=== PATIENT | male | born 1950 | race Caucasian/White ===

== ENCOUNTER 2024-05-05 11:58 | Inpatient (IN) | payer MEDICARE, OTHER, SELFPAY ==
[2024-05-05] VITALS (12 sets, daily range): BP systolic 106–136; BP diastolic 70–99; BMI 39.4; BMI 38.2
[2024-05-05 08:07] LABS: % Basophils 0.8 % (0-2); % Eosinophils 2.4 % (0-6); % Immature Granulocytes 0.3 % (0-0.5); % Lymphocytes 31.6 % (20.5-51.1); % Monocytes 10.5 % (1.7-9.3); % Neutrophils 54.4 % (42.2-75.2); Absolute Basophils 0.1 10^3/uL (0-0.2); Absolute Eosinophils 0.2 10^3/uL (0-0.7); Absolute Monocytes 0.7 10^3/uL (0.1-0.6); Absolute Neutrophils 3.4 10^3/uL (1.4-6.5); Hematocrit 46.5 % (39.0-52.0); Hemoglobin 16.3 g/dL (13.0-18.0); Mean Corp Hgb Conc. 35.1 g/dL (33.0-37.0); Mean Corpuscular Hgb 29.9 pg (27.0-31.0); Mean Corpuscular Volume 85.3 fL (80.0-94.0); Mean Platelet Volume 10.4 fL (7.4-10.4); Nucleated Red Blood Cells % 0 % (-); Platelet Count 226 10^3/uL (130-400); Red Blood Cell Count 5.45 10^6/uL (4.70-6.10); Red Cell Dist. Width 13.2 % (11.5-14.5); White Blood Cell Count 6.3 10^3/uL (4.8-10.8)
[2024-05-05 08:19] LABS: ALT (SGPT) 20 U/L (0-50); AST (SGOT) 21 U/L (17-59); Albumin 3.9 g/dl (3.5-5.0); Alkaline Phosphatase 60 U/L (38-126); Blood Urea Nitrogen 17 mg/dl (9-20); Calcium 9.1 mg/dl (8.4-10.2); Carbon Dioxide 19 mmol/L (22-30); Chloride 103 mmol/L (98-107); Estimated Creatinine Clearance > 125 ml/min; Glucose 185 mg/dl (70-99); Potassium 3.6 mmol/L (3.5-5.1); Sodium 134 mmol/L (135-145); Total Bilirubin 0.8 mg/dl (0.2-1.3); Total Protein 6.5 g/dl (6.3-8.2); eGFR > 60.00
--- NOTE | 2024-05-05 08:30 | ED.GENMED ---
History of Present Illness
General
Chief Complaint: Heart Rate Problem
Source: patient and ambulance crew
Exam Limitations: none
Time Seen by Provider: 05/05/24 08:05
Nursing documentation reviewed up to this point in time: agreed with
History of Present Illness
History of Present Illness:
73-year-old male presents emergency room due to dizziness, nausea vomiting and heart palpitations that began at 6 AM. He had nausea and vomiting, and was found to be in rapid atrial fibrillation.
Past History
Past History
ED Past Medical History: HTN and Hypercholesterolemia
ED Past Surgical History: Bowel resection and Other (Umbilical hernia repair, incisional hernia repair)
Social History
Tobacco: Non-smoker
Alcohol: None
Drug: None
Personal:
Review of Systems
Review of Systems
Allergies reviewed?: Yes
All Other Systems: Not applicable
Constitutional: Reports no symptoms
EENT: Reports no symptoms
Respiratory: Reports no symptoms
Cardiac: Reports palpitations
ABD/GI: Reports nausea and vomiting
: Reports no symptoms
Musculoskeletal: Reports no symptoms
Skin: Reports no symptoms
Neurological: Reports dizzy
Endocrine: Reports no symptoms
Hematologic/Lymphatic: Reports no symptoms
Psychiatric: Reports no symptoms
Phy Exam
Physical Exam
Physical Exam:
Physical Exam
General: Afebrile, appears uncomfortable
Neck: supple. no meningeal signs. normal posterior pharynx
Heart: s1/s2 tachycardia, no murmur. equal radial
pulses.
HEENT: Pupils equal round reactive to light, EOMI
Lungs: no acute respiratory distress. clear bilaterally
Abdomen: normal bowel sounds. not tender. no CVAT
Neuro: alert and oriented. no focal neurological deficits cranial nerves II through XII intact
Skin: no rash
Psychiatric: well kept. interactive and cooperative
Extremities: no edema. no calf tenderness. negative homans. good distal pulses
Course
Orders/Labs/Results
Orders:
Orders
05/05/24 07:38
EKG [Electrocardiogram (*1)] Urgent
Reason for Study: Palpitations
EKG- Treatment ONCE
05/05/24 07:44
Cardiac Monitoring- Treatment ONCE
Pulse Ox/spot Check [RESP] Urgent
Quantity: 1
Special Instructions: ON ROOM AIR
05/05/24 07:53
Complete Blood Count/With Diff Urgent
Comprehensive Metabolic Panel Urgent
Troponin I Urgent
05/05/24 08:29
CT Head W/o Iv Contrast Urgent
Comment:
Reason For Exam: dizziness, n/v
05/05/24 09:38
Diltiazem 125 mg/125 ml Nss [Cardizem] 125 mg in 125 ml IV NOW
Initial dose in mg/hr, then titrate:: 5
Titrate to keep:: Heart rate 80-100 bpm
Titrate by mg/hr:: 5 mg/hr
Frequency of titrations (minutes):: 15
Maximum dose in mg/hr:: 15
Diltiazem HCl [Cardizem] 5 mg IV NOW STA
05/05/24 11:29
Admit/Transfer Patient As Directed
Co-Sign Provider:
Level of Care: Inpatient admission
Assign to:: IVU
Physician / Group: Oswald
Diagnosis: Afib with RVR
Reason for Hospitalization: Above
Expected length of stay greater than two midnights?: Yes
ELOS- Estimated Length of Stay in days: 2
I certify the patient meets the requirements for IP care: Yes
05/05/24 11:30
PRN Pain Medication Management As Directed
May give lesser potent ordered pain med per pt: Yes
preference::
Protocol:: Medication orders for pain may be administered in a
manner that supports deferring to patient preference
when the pt is:
- Requesting an ordered lesser potent pain medication.
Least to most potent pain medications are defined
as: acetaminophen < NSAID < tramadol < opioids
(morphine, oxycodone, hydromorphone).
- Requesting a lesser dose of the same medication IF
ORDERED.
- Requesting a less intrusive route of administration
if both routes are prescribed by the provider (PO <
IV).
05/05/24 11:32
Code Status As Directed
Resuscitation Status: Full Code
Abnormal Lab Results
05/05/24
07:53
Absolute Monos (auto) 0.7 H 10^3/uL
(0.1-0.6)
Monocytes % 10.5 H %
(1.7-9.3)
Sodium 134 L mmol/L
(135-145)
Carbon Dioxide 19 L mmol/L
(22-30)
Creatinine 0.6 L mg/dL
(0.7-1.3)
Glucose 185 H mg/dl
(70-99)
05/05/24 07:53
05/05/24 07:53
Vital Signs
Initial and Last Documented VS:
Initial Vital Signs
Temp Pulse Resp BP Pulse Ox
98.2 F 122 16 136/85 98
05/05/24 07:34 05/05/24 07:34 05/05/24 07:34 05/05/24 07:34 05/05/24 07:34
Last Documented Vital Signs
Temp Pulse Resp BP Pulse Ox
98.2 F 101 21 115/90 94
05/05/24 07:34 05/05/24 13:45 05/05/24 13:45 05/05/24 11:20 05/05/24 13:45
MDM/Problems Addressed
Differential Diagnosis Includes:
CVA, rapid A-fib
MDM/Problems Addressed:
73-year-old male with dizziness, rapid A-fib, double vision. IV Cardizem drip. Admit to hospitalist. CT head no acute finding
Chronic conditions affecting care: Arrhythmia
Acute Exacerbation and/or Progression of Chronic Illness: Arrhythmia
*Radiology
Radiology exam reviewed: radiology read reviewed (CT head no acute findings)
*Pulse Oximetry
Patient hypoxic: no
*EKG
Interpreted by ED Provider?: Yes
EKG Intrepretation Date: 05/05/24
EKG Intrepretation Time: 07:40
Interpretation: abnormal
Comparison EKG: changes noted
Heart Rate: 130
Rate: tachycardiac
Rhythm: a-fib
Boaz: normal axis
Interval: normal interval
QRS Pattern: normal QRS
Ischemia: non-specific ST changes
*Order Selector Interpretation
Rate: tachycardiac
Interpretation: abnormal
Heart Rate: 120
Rhythm: a-fib
*Critical Care Note
Total Time (30-74mins, 75-104mins- exclusive of procedures): 30
comment:
Critical care statement: A total of 30 minutes of critical care time was provided for this patient. This includes management of unstable vital signs, evaluation of the patient at bedside, reviewing the patient's pertinent medical records, discussion
with consultants, review of old EKGs and review of pertinent medical records. This time with separate from time utilized to perform the aforementioned documented procedures
ED Attending Note
-
Portions of this chart may have been created with voice recognition software.� Occasional wrong word or��sound alike� substitutions may have occurred due to the inherent limitations of voice recognition software.
Discharge Plan
Departure
Patient Disposition: Admit
Date of Disposition: 05/05/24
Time of Disposition: 10:33
Admit to: IVU
Presentation/result/management discussed w/ accepting MD/DO: Hospitalist
Patient with high blood pressure during this ER visit?: Yes
Condition: Fair
Discharge Problem:
Rapid atrial fibrillation, Dizziness, Double vision
Interventions
Interventions:
*Risk Screen - Suicide Last Done: 05/05/24 07:34
*General Assessment Last Done: 05/05/24 07:34
*Neglect/Abuse Screening Last Done: 05/05/24 07:34
ED- Fall Risk Assessment Last Done: 05/05/24 07:42
*ED COVID-19 Vaccine History Last Done: 05/05/24 07:42
ED- Cardiac Assessment Last Done: 05/05/24 07:42
ED- Pulmonary Assessment Last Done: 05/05/24 07:42
[2024-05-05 08:31] LABS: Troponin I < 0.012 ng/ml
[2024-05-05] MEDS: CARDIZEM 5 MG IV (09:55)
[2024-05-05] MEDS: CARDIZEM 125 IV (09:55)
--- NOTE | 2024-05-05 11:36 | HPS.HSE ---
Family Physician
-
Family Physician: Taran Rosario
Chief Complaint
-
Palpitations, dizziness, nausea and vomiting, transient diplopia
History of Present Illness
Patient is a 73 years old male with a history of paroxysmal A-fib with prior ablation cardioversions on anticoagulation with Eliquis who presents to the emergency room shortly after onset of palpitations, dizziness, nausea with 1 episode of emesis
and transient diplopia. Patient denies any chest pain, passing out. While in emergency room patient was found to be in rapid atrial fibrillation with rate up to 130�140s. He was hemodynamically stable.
Was initiated on Cardizem drip with now rate being controlled at mid 90s. Patient has been compliant with preadmission medication regimen including Cardizem as well as with Eliquis.
At the time my examination patient denies any chest pain, palpitations. His dizziness, nausea, and double vision all resolved.
Medical History
Past Medical History
Past Medical History: Reports Arrhythmia (Paroxysmal atrial fibrillation), HTN, Hypercholesterolemia, NIDDM and Other (Lichen planus)
Past Surgical History: Reports Other (Orthopedic. Status post ablation)
Social History
Tobacco: Non-smoker
Drug: None
Personal:
Living: With Family
Employment: Retired
Family History
Family History: Not pertinent
Allergies / Home Medications
Allergies reflects when Allergies were last updated in [facility].
Home Medications with original date entered in [facility]
Allergy/Medication List:
Allergies
Allergy/AdvReac Type Severity Reaction Status Date / Time
codeine AdvReac Mild Nausea Verified 05/05/24 07:33
oxycodone [From Percocet] AdvReac Nausea Verified 05/05/24 07:33
Home Medications
cholecalciferol (vitamin D3) 50 mcg (2,000 unit) tablet 2,000 units PO DAILY 04/01/18
cyanocobalamin (vitamin B-12) 1,000 mcg tablet 1,000 mcg PO DAILY 04/01/18
hydrochlorothiazide 25 mg tablet 25 mg PO DAILY 04/01/18
potassium chloride 10 mEq capsule,extended release 20 meq PO DAILY 04/01/18
guaifenesin 1,200 mg tablet, extended release 12 hr (Mucinex) 1,200 mg PO BID 01/24/19
cetirizine 10 mg tablet 10 mg PO Daily 05/01/21
apixaban 5 mg tablet (Eliquis) 5 mg PO BID ##0 05/12/21
metformin 1,000 mg tablet 1,000 mg PO QPM ##0 05/12/21
pravastatin 40 mg tablet 40 mg PO QPM 05/01/22
diltiazem HCl 120 mg tablet 120 mg PO .SEE BELOW 05/05/24
triamcinolone acetonide 0.1 % topical ointment 1 applic topical BID BODY RASH 05/05/24
Review of Systems
-
A 12 point ROS was completed and negative except as noted: Yes
Respiratory: Reports See HPI
Cardiac: Reports See HPI
Abdomen/GI: Reports See HPI
Neurological: Reports See HPI
Physical Exam
Vital Signs
Vital Signs
Temp Pulse Resp BP Pulse Ox
98.2 F 117 20 136/93 94
05/05/24 07:34 05/05/24 09:08 05/05/24 09:08 05/05/24 08:20 05/05/24 08:30
Physical Exam
General: Well Developed, Well Nourished and No Apparent Distress
HEENT: NormoCephalic, Moist mucous membranes and Atraumatic
Respiratory: Clear
Cardiac: S1/S2 and Regular Rhythm; No Murmur or Rub
GI: Soft, Non Tender, Non Distended and Normal Bowel Sounds; No Organomegaly
Rectal: Deferred by Provider
Musculoskeletal: No Clubbing, No Cyanosis and No Edema
Skin: No Rash
Neuro: Nonfocal/grossly intact
Laboratory Results
-
05/05/24 07:53
05/05/24 07:53
Laboratory Results
Total Bilirubin 0.8 mg/dl (0.2-1.3) 05/05/24 07:53
AST 21 U/L (17-59) 05/05/24 07:53
ALT 20 U/L (0-50) 05/05/24 07:53
Alkaline Phosphatase 60 U/L (38-126) 05/05/24 07:53
Troponin I < 0.012 ng/ml 05/05/24 07:53
Impression/Plan
-
IMPRESSION:
Presentation with palpitations, nausea and dry heaves, transit dizziness with diplopia.
Atrial fibrillation with rapid ventricular response.
Conditions prior to admission:
Paroxysmal atrial fibrillation with prior history of ablation and multiple cardioversions.
Essential hypertension.
Type 2 diabetes [id number].
Dyslipidemia
Obesity with BMI of 39
Obstructive sleep apnea.
Lichen planus
Chronic shortness of breath on exertion
PLAN:
A-fib with RVR.
Improved with initiation of IV Cardizem
Monitor on telemetry.
Considered to transition to Cardizem drip in the higher dose.
Continue anticoagulation with Eliquis.
Cardiology consultation
Presentation with nausea, emesis, dizziness and diplopia shortly resolved with improved rate.
No focal neurologic findings on exam.
CT scan of the head with no acute abnormalities.
Patient states he had been compliant with Eliquis.
Monitor closely, if persistent symptoms consider to repeat CT scan or pursue MRI and neurologic evaluation
Essential hypertension
Patient reports increased BP readings as outpatient.
Currently normotensive while on Cardizem drip.
MADDISON 05/07 with preserved LVEF 60 to 65% no significant valvular abnormalities. Large patent foramen ovale present with the [id number] shunt
Consider updating echocardiogram.
Monitor BP trend while on Cardizem
Continue HCTZ.
Type 2 diabetes [id number].
Update hemoglobin A1c
Carbohydrate diet
Continue metformin.
Dyslipidemia on statin
Obstructive sleep apnea patient may use his own CPAP.
Lichen planus currently on topical steroids.
DVT prophylaxis�Eliquis.
Full code
--- NOTE | 2024-05-05 12:47 | CON.CAR ---
Addendum entered and electronically signed by Daniel Ramírez MD 05/05/24 17:39:
I saw and examined the patient.
The Food Technologist's note was reviewed and I agree with the note.
Comment:
GEN: No distress, awake, Ox3
HEENT: supple, anicteric, mmm
LUNGS: CTA, no wheezes/rales
CV: Irreg, S1/S2, 1/6 syst LSB, no gallop
ABD: soft, BS+, NT/ND
EXT: No edema
NEURO: Gross non-focal
SKIN: No rash
Plan:
73-year-old male with past medical history of PVI in 2020, obesity, diabetes, hypertension hyperlipidemia, lichen planus presents with dizziness and grogginess. He was found to be in atrial fibrillation with elevated heart rates. He has not
tolerated amiodarone or sotalol in the past. He does take hydrochlorothiazide and last dose was morning.
Continue IV Cardizem for rate control. There is an interaction between hydrochlorothiazide and Tikosyn, however on Wednesday morning we will initiate Tikosyn 500 mcg p.o. every 12. And follow QT interval.
Plan will be for cardioversion on Wednesday. Continue Eliquis.
Check echocardiogram. Will need to follow blood pressure off hydrochlorothiazide.
Original Note:
Consultation
Consultation Request
Date/Time Consultation Performed: 05/05/24
Requesting Provider: Dr. Akers
Performing Provider: Shania Reyna PA-C for Dr. Ramírez
Reason for Consultation: afib
Medical History
-
Chief Complaint: N/V, dizziness
History of Present Illness:
Patient is a 73-year-old male with past medical history of paroxysmal atrial fibrillation status post PVI 04/2021, diabetes, hypertension, hyperlipidemia, obesity, ADELSO, history of colon resection 1996 secondary to diverticulitis, former smoker,
recent diagnosis lichen planus, who was in his normal state of health upon going to bed around 9 PM last night. He reports he was up several times to go to the bathroom and was up at 5 AM with his dog. He went back to sleep, however when he woke
up he felt 'groggy' and as though 'my mind could not keep up with my head' when he moved his head. He reports he waited for it to improve, however did not. Also had nausea and vomiting. He could not sit or stand up and then started to become
sweaty. 911 was then called. On arrival to the ER was noted to be in atrial fibrillation with elevated heart rates. He reports he has historically been asymptomatic with his A-fib. He had previously been on amiodarone however this was stopped as
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 He reports compliance with Eliquis. He states after his ablation his heart rates were in the 60s in sinus rhythm, however states they have not been that low in quite some time, noting more
recently heart rates in the 90s to 100s. He reports over the last week his blood pressure has been elevated and a new medication was added to his regimen. Has not noted headaches. Does report worsening shortness of breath. He is on HCTZ 25mg
daily.
PMH:
Paroxysmal atrial fibrillation
Status post PVI 04/2021
Chronic anticoagulation with Eliquis
Diabetes
Hypertension
Hyperlipidemia
Obesity
ADELSO
History of colon resection 1996 secondary to diverticulitis
Former smoker
Recent diagnosis lichen planus
Past Medical History
Past Medical History: Other (in HPI)
Social History
Tobacco: Former Smoker
Personal:
Living: With Family
Family History
Family History: Reviewed & Not Pertinent
Allergies / Home Medications
Allergy/AdvReac Type Severity Reaction Status Date / Time
codeine AdvReac Mild Nausea Verified 05/05/24 07:33
oxycodone [From Percocet] AdvReac Nausea Verified 05/05/24 07:33
�Medication �Instructions �Recorded �Confirmed �Type
cholecalciferol (vitamin D3) 50 2,000 units PO DAILY 04/01/18 05/05/24 History
mcg (2,000 unit) tablet
cyanocobalamin (vitamin B-12) 1,000 mcg PO DAILY 04/01/18 05/05/24 History
1,000 mcg tablet
hydrochlorothiazide 25 mg tablet 25 mg PO DAILY 04/01/18 05/05/24 History
potassium chloride 10 mEq 20 meq PO DAILY 04/01/18 05/05/24 History
capsule,extended release
guaifenesin 1,200 mg tablet, 1,200 mg PO BID 01/24/19 05/05/24 History
extended release 12 hr (Mucinex)
cetirizine 10 mg tablet 10 mg PO Daily 05/01/21 05/05/24 History
apixaban 5 mg tablet (Eliquis) 5 mg PO BID ##0 05/12/21 05/05/24 Rx
metformin 1,000 mg tablet 1,000 mg PO QPM ##0 05/12/21 05/05/24 Rx
pravastatin 40 mg tablet 40 mg PO QPM 05/01/22 05/05/24 History
diltiazem HCl 120 mg tablet 120 mg PO .SEE BELOW 05/05/24 05/05/24 History
triamcinolone acetonide 0.1 % 1 applic topical BID BODY RASH 05/05/24 05/05/24 History
topical ointment
Review of Systems
-
History Source: Patient
All other systems: Negative unless noted
Physical Exam
Vital Signs
Temp Pulse Resp BP Pulse Ox
98.2 F 117 20 136/93 94
05/05/24 07:34 05/05/24 09:08 05/05/24 09:08 05/05/24 08:20 05/05/24 08:30
Lab Results
05/05/24 07:53
05/05/24 07:53
Troponin I < 0.012 ng/ml 05/05/24 07:53
Physical Exam
General: No Apparent Distress, Comfortable and Other (obese)
HEENT: Normocephalic, Anicteric and Moist Mucous Membranes
Respiratory: Clear and Non Labored Respirations
Cardiac: S1/S2 and Irregular Rhythm
GI: Soft, Non Tender, Non Distended and Normal Bowel Sounds
Musculoskeletal: No Clubbing, No Cyanosis and No Edema
Skin: Warm and Dry
Neuro: AO x 3
Impression / Plan
-
Primary Travel Assistant: Dr. Barnett
Assessment:
Presentations with dizziness, N/V, concern for vertigo
Paroxysmal atrial fibrillation with RVR
Status post PVI 04/2021
Chronic anticoagulation with Eliquis
Diabetes
Hypertension
Hyperlipidemia
Obesity
ADELSO
mild pulm fibrosis
History of colon resection 1996 secondary to diverticulitis
Former smoker
Recent diagnosis lichen planus
ECHO 08/13/21: EF 64%, moderate concentric LVH, mild MR, trace TR
Plan:
-Patient presented with dizziness/grogginess as well as nausea and vomiting, fortunately now resolved. head CT negative for acute abnormality. work up per primary service
-trop negative
-On arrival to ER was noted to be in A-fib with RVR and started on IV Cardizem, continue for now. On p.o. Cardizem 120 mg daily as an outpatient
-He reports compliance with Eliquis, no missed doses
-He had previously been on amiodarone however this was stopped due to concern for possible side effects with long-term use. Office notes discussed consideration for Tikosyn versus repeat PVI if he were to recur with A-fib. Discussed Tikosyn with
patient and he is agreeable, however he is on HCTZ as an outpatient which will need to be stopped. QTc stable by EKG and Cr normal. washout period likely ~ 72 hours. if patient unwilling to stay for washout and then loading, would consider rate
control with possible CV Wednesday and to bring back for tikosyn sometime May or June. not candidate for sotalol due to LVH.
-due to complaints of SOB, check proBNP and CXR. also has mild IPF, but states he was recently seen by pulmonary and SOB was not felt to be lung related
-follow BPs off HCTZ. may need improved BP control
-check TSH
-echo ordered by me. last from 2021 as above
Data Reviewed
-
EKG: Tracing Personally Visualized and interpreted
Medical Tests (Nuc Med, Echo etc): Report Reviewed by me
Labs: Labs Reviewed by me
Old Records: Reviewed
--- NOTE | 2024-05-05 16:02 | CM ---
CM following for DC planning needs.
Prior to admission, patient was residing w/ spouse in a private home.
Functionally, patient is indep. at baseline w/ ADLs, mobility.
Antic. DC to home without needs once stable.
Will remain avail.
[2024-05-05 16:05] LABS: Glucose - Point of Care 121 mg/dl (70-99)
[2024-05-05 16:07] LABS: NT-proBNP 548 pg/ml
[2024-05-05] MEDS: GLUCOPHAGE 1000 MG PO (16:34)
--- NOTE | 2024-05-05 16:59 | RESPNOTE ---
spoke with patient regarding bipap/cpap order. patient states he has never been able to tolerate the PAP unit and does not wear. TT to Dr.Vinnikov Juan trejo to d/c order.
[2024-05-05] MEDS: PRAVACHOL 40 MG PO (17:16)
--- NOTE | 2024-05-05 18:00 | PTCARENOTE ---
Pt received from the ED and admitted to IVU. IV cardizem infusing as ordered. Pt denies any pain, sob or lightheadedness. Remains in afib in the 80's to 90's. OOB ad kathia, gait steady.
[2024-05-05] MEDS: ELIQUIS 5 MG PO (20:31)
[2024-05-05] MEDS: MUCINEX 1200 MG PO (20:31)
[2024-05-05] MEDS: TRIAMCINOLONE ACETONIDE 0.1% OINTMENT 1 APPLIC TOPICAL (20:31)
[2024-05-05 22:19] LABS: Glucose - Point of Care 100 mg/dl (70-99)
--- NOTE | 2024-05-05 23:59 | PTCARENOTE ---
Diltiazem gtt infusing at 5mg/min at this time per order. Atrial fibrillation on monitoring engineer. Patient denies pain, palpitations, lightheadedness, nausea, and/or vomiting. Call osei within reach. Plan of care discussed with patient. Care
ongoing.
[2024-05-06 03:23] VITALS: BP 127/97
[2024-05-06] MEDS: CARDIZEM 125 IV (07:18)
[2024-05-06 07:20] LABS: Glucose - Point of Care 106 mg/dl (70-99)
[2024-05-06 09:00] VITALS: BP 124/93
[2024-05-06 09:00] LABS: Glycohemoglobin (HgbA1c) 6.4 % (4.0-5.6)
[2024-05-06] MEDS: MUCINEX 1200 MG PO ×2 (09:02→20:30)
[2024-05-06] MEDS: VITAMIN D3 (cholecalciferol) 50 MCG PO (09:03)
[2024-05-06] MEDS: ELIQUIS 5 MG PO ×2 (09:03→20:30)
[2024-05-06] MEDS: KCL 20 MEQ PO (09:03)
[2024-05-06] MEDS: VITAMIN B-12 1000 MCG PO (09:03)
[2024-05-06] MEDS: TRIAMCINOLONE ACETONIDE 0.1% OINTMENT 1 APPLIC TOPICAL ×2 (09:04→20:31)
[2024-05-06] MEDS: ZYRTEC 10 MG PO (09:05)
--- NOTE | 2024-05-06 09:31 | W.PN.CARDCBS ---
Today's Communication / Plan
-
Overall feels better. Will continue IV Cardizem for now and then can switch to Tikosyn in a.m. for Tikosyn load
Continue Eliquis.
Plan will be for cardioversion Wednesday
Impression / Plan
-
Primary Development Architect: Dr. Barnett
Assessment:
Presentations with dizziness, N/V, concern for vertigo
Paroxysmal atrial fibrillation with RVR
Status post PVI 04/2021
Chronic anticoagulation with Eliquis
Diabetes
Hypertension
Hyperlipidemia
Obesity
ADELSO
mild pulm fibrosis
History of colon resection 1996 secondary to diverticulitis
Former smoker
Recent diagnosis lichen planus
ECHO 08/13/21: EF 64%, moderate concentric LVH, mild MR, trace TR
Echo May 05, 2024, EF 55 6%, mild MR, mild TR, aortic root 3.9 cm
Plan:
-Patient presented with dizziness/grogginess as well as nausea and vomiting, fortunately now resolved. head CT negative for acute abnormality. work up per primary service
-trop negative
-Continue IV Cardizem for another 24 hours. Tomorrow we will start Tikosyn 500 mcg every 12. He will be off hydrochlorothiazide for 72 hours at that point.
-He reports compliance with Eliquis, no missed doses
-LVEF preserved by echo. Plan will be for cardioversion on Wednesday.
Progress Note - Development Architect
Subjective
Date of Service: May 06, 2024
Overall feels better. No further dizziness. Remains in A-fib with controlled rates.
Objective
Labs:
05/05/24 07:53
05/05/24 07:53
Labs
Hgb 16.3 g/dL (13.0-18.0) 05/05/24 07:53
Hct 46.5 % (39.0-52.0) 05/05/24 07:53
Plt Count 226 10^3/uL (130-400) 05/05/24 07:53
Sodium 134 mmol/L (135-145) L 05/05/24 07:53
Potassium 3.6 mmol/L (3.5-5.1) 05/05/24 07:53
BUN 17 mg/dl (9-20) 05/05/24 07:53
Creatinine 0.6 mg/dL (0.7-1.3) L 05/05/24 07:53
Glucose 185 mg/dl (70-99) H 05/05/24 07:53
Troponins
05/05/24
07:53
Troponin I < 0.012
Vital Signs and I&O:
Vital Signs
Temp Pulse Resp BP Pulse Ox
98.2 F 81 14 127/97 97
05/06/24 03:20 05/06/24 06:00 05/06/24 03:20 05/06/24 03:23 05/06/24 03:20
Vital Signs
Temp Pulse Resp BP Pulse Ox
98.2 F 81 14 127/97 97
05/06/24 03:20 05/06/24 06:00 05/06/24 03:20 05/06/24 03:23 05/06/24 03:20
Intake & Output
05/04/24 05/05/24 05/06/24 05/07/24
06:59 06:59 06:59 06:59
Intake Total 60 / 60
Balance 60 / 60
Physical Exam
Physical Exam
GEN: No distress, awake, Ox3
HEENT: supple, anicteric, mmm
LUNGS: CTA, no wheezes/rales
CV: irreg, S1/S2, 1/6 syst LSB, no gallop
ABD: soft, BS+, NT/ND
EXT: No edema
NEURO: Gross non-focal
SKIN: No rash
[2024-05-06 11:59] VITALS: BP 112/84
[2024-05-06 11:59] LABS: Glucose - Point of Care 96 mg/dl (70-99)
--- NOTE | 2024-05-06 14:24 | W.PN.HOSP.TC ---
Today's Communication/Plan
-
Monitor vital signs
see plan
Plan for Tikosyn loading starting tomorrow by cardiology
Cardioversion next week
Continue with Cardizem drip
Assessment / Plan
Assessment / Plan
General: Well Developed, Well Nourished and No Apparent Distress
HEENT: NormoCephalic, Moist mucous membranes and Atraumatic
Respiratory: Clear
Cardiac: S1/S2 and Regular Rhythm; No Murmur or Rub
GI: Soft, Non Tender, Non Distended and Normal Bowel Sounds
Musculoskeletal: No Clubbing, No Cyanosis and No Edema
Skin: No Rash
Neuro: Nonfocal/grossly intact
IMPRESSION:
Presentation with palpitations, nausea and dry heaves, transit dizziness with diplopia.
Atrial fibrillation with rapid ventricular response.
Conditions prior to admission:
Paroxysmal atrial fibrillation with prior history of ablation and multiple cardioversions.
Essential hypertension.
Type 2 diabetes [id number].
Dyslipidemia
Obesity with BMI of 39
Obstructive sleep apnea.
Lichen planus
Chronic shortness of breath on exertion
PLAN:
A-fib with RVR. History of paroxysmal A-fib status post cardioversion and ablation in past
Improved with initiation of IV Cardizem
Monitor on telemetry.
Plan for Tikosyn starting 05/07 once patient is off HCTZ
Continue anticoagulation with Eliquis.
Cardiology following. Plan for cardioversion possibly on Wednesday
Presentation with nausea, emesis, dizziness and diplopia shortly resolved with improved rate.
No focal neurologic findings on exam.
CT scan of the head with no acute abnormalities.
Patient states he had been compliant with Eliquis.
Monitor closely, if persistent symptoms consider to repeat CT scan or pursue MRI and neurologic evaluation
Essential hypertension
Patient reports increased BP readings as outpatient.
Currently normotensive while on Cardizem drip.
Echocardiogram EF 55 to 60%
Monitor BP trend while on Cardizem
Type 2 diabetes [id number].
hemoglobin A1c 6.4
Carbohydrate diet
Continue metformin.
Dyslipidemia on statin
Obstructive sleep apnea patient may use his own CPAP.
Lichen planus currently on topical steroids.
DVT prophylaxis�Eliquis.
Full code
I spent a total of 52 minutes with the patient or on the floor. More than 50% of this time involved counseling and coordination of care.
Anticipated Discharge: > 48 hours
Subjective/Interval History
-
Date of Service: May 06, 2024
denies pain
Objective Data
-
Vital Signs:
Vital Signs
Temp Pulse Resp BP Pulse Ox
97.8 F 79 18 124/93 92
05/06/24 11:57 05/06/24 11:00 05/06/24 11:57 05/06/24 09:00 05/06/24 11:57
I&O
05/05/24 05/06/24 05/07/24
06:59 06:59 06:59
Intake Total 60 / 60
Balance 60 / 60
[2024-05-06 15:17] VITALS: BP 116/87
[2024-05-06] MEDS: TYLENOL 650 MG PO (17:06)
[2024-05-06] MEDS: GLUCOPHAGE 1000 MG PO (17:06)
[2024-05-06] MEDS: PRAVACHOL 40 MG PO (17:06)
[2024-05-06 17:11] LABS: Glucose - Point of Care 88 mg/dl (70-99)
--- NOTE | 2024-05-06 17:45 | PTCARENOTE ---
Assumed care of Pt at 1645, A,A+Ox3. He c/o headache. Order obtained from Dr Frost for Tylenol. Pt med with Tylenol 650 mg Po as ordered for
c/o posterior headache.
[2024-05-06 19:29] VITALS: BP 115/84
[2024-05-06 20:30] LABS: Glucose - Point of Care 100 mg/dl (70-99)
[2024-05-06 22:09] VITALS: BP 117/97
--- NOTE | 2024-05-07 03:48 | PTCARENOTE ---
Assumed care of pt at change of shift. Afib on tele with HR 70s-80s. No complaints of CP or SOB. Cardizem gtt currently infusing at 5mg/hr. Ambulating independently in room without difficulty. Plan of care discussed and pt verbalizes
understanding. Can make needs known. Call osei within reach.
[2024-05-07 04:04] VITALS: BP 109/74
[2024-05-07 04:53] LABS: % Basophils 0.7 % (0-2); % Eosinophils 3.2 % (0-6); % Immature Granulocytes 0.4 % (0-0.5); % Lymphocytes 22.6 % (20.5-51.1); % Monocytes 9.5 % (1.7-9.3); % Neutrophils 63.6 % (42.2-75.2); Absolute Basophils 0.1 10^3/uL (0-0.2); Absolute Eosinophils 0.2 10^3/uL (0-0.7); Absolute Lymphocytes 1.6 10^3/uL (1.2-3.4); Absolute Monocytes 0.7 10^3/uL (0.1-0.6); Absolute Neutrophils 4.4 10^3/uL (1.4-6.5); Hematocrit 45.3 % (39.0-52.0); Hemoglobin 15.4 g/dL (13.0-18.0); Mean Corpuscular Volume 88.1 fL (80.0-94.0); Mean Platelet Volume 10.5 fL (7.4-10.4); Nucleated Red Blood Cells % 0 % (-); Platelet Count 209 10^3/uL (130-400); Red Blood Cell Count 5.14 10^6/uL (4.70-6.10); Red Cell Dist. Width 13.5 % (11.5-14.5)
[2024-05-07 05:17] LABS: Blood Urea Nitrogen 15 mg/dl (9-20); Calcium 8.9 mg/dl (8.4-10.2); Carbon Dioxide 24 mmol/L (22-30); Chloride 104 mmol/L (98-107); Estimated Creatinine Clearance > 125 ml/min; Glucose 107 mg/dl (70-99); Potassium 4.2 mmol/L (3.5-5.1); Sodium 136 mmol/L (135-145); eGFR > 60.00
[2024-05-07] MEDS: CARDIZEM 125 IV (06:45)
[2024-05-07 07:10] VITALS: BP 121/95
[2024-05-07 07:13] LABS: Glucose - Point of Care 100 mg/dl (70-99)
[2024-05-07] MEDS: KCL 20 MEQ PO (08:13)
[2024-05-07] MEDS: ELIQUIS 5 MG PO ×2 (08:13→19:40)
[2024-05-07] MEDS: VITAMIN B-12 1000 MCG PO (08:14)
[2024-05-07] MEDS: VITAMIN D3 (cholecalciferol) 50 MCG PO (08:14)
[2024-05-07] MEDS: ZYRTEC 10 MG PO (08:14)
[2024-05-07] MEDS: MUCINEX 1200 MG PO ×2 (08:17→19:40)
[2024-05-07] MEDS: TRIAMCINOLONE ACETONIDE 0.1% OINTMENT 1 APPLIC TOPICAL ×2 (08:18→19:40)
--- NOTE | 2024-05-07 09:28 | W.PN.CARDCBS ---
Today's Communication / Plan
-
start Tikosyn 500 mcg p.o. every 12. Follow QT interval.
Continue Eliquis
Will switch diltiazem to 120 mg p.o. daily
Impression / Plan
-
Primary Cane Weigher: Dr. Barnett
Assessment:
Presentations with dizziness, N/V, concern for vertigo
Paroxysmal atrial fibrillation with RVR
Status post PVI 04/2021
Chronic anticoagulation with Eliquis
Diabetes
Hypertension
Hyperlipidemia
Obesity
ADELSO
mild pulm fibrosis
History of colon resection 1996 secondary to diverticulitis
Former smoker
Recent diagnosis lichen planus
ECHO 08/13/21: EF 64%, moderate concentric LVH, mild MR, trace TR
Echo May 05, 2024, EF 55 6%, mild MR, mild TR, aortic root 3.9 cm
Plan:
-Patient presented with dizziness/grogginess as well as nausea and vomiting, fortunately now resolved. head CT negative for acute abnormality. work up per primary service
-trop negative
-we will start Tikosyn 500 mcg every 12. He will be off hydrochlorothiazide for 72 hours at that point.
-He reports compliance with Eliquis, no missed doses
-Will likely stop IV diltiazem and switch back to p.o. today.
-LVEF preserved by echo. Plan will be for cardioversion on Wednesday.
Progress Note - Cane Weigher
Subjective
Date of Service: May 07, 2024
Overall feels well. Plan is to start Tikosyn today.
Objective
Labs:
05/07/24 04:25
05/07/24 04:25
Labs
Hgb 15.4 g/dL (13.0-18.0) 05/07/24 04:25
Hct 45.3 % (39.0-52.0) 05/07/24 04:25
Plt Count 209 10^3/uL (130-400) 05/07/24 04:25
Sodium 136 mmol/L (135-145) 05/07/24 04:25
Potassium 4.2 mmol/L (3.5-5.1) 05/07/24 04:25
BUN 15 mg/dl (9-20) 05/07/24 04:25
Creatinine 0.6 mg/dL (0.7-1.3) L 05/07/24 04:25
Glucose 107 mg/dl (70-99) H 05/07/24 04:25
Troponins
05/05/24
07:53
Troponin I < 0.012
Vital Signs and I&O:
Vital Signs
Temp Pulse Resp BP Pulse Ox
98.4 F 80 20 109/74 90
05/07/24 07:07 05/07/24 04:04 05/07/24 07:07 05/07/24 04:04 05/07/24 07:07
Vital Signs
Temp Pulse Resp BP Pulse Ox
98.4 F 80 20 109/74 90
05/07/24 07:07 05/07/24 04:04 05/07/24 07:07 05/07/24 04:04 05/07/24 07:07
Intake & Output
05/05/24 05/06/24 05/07/24 05/08/24
06:59 06:59 06:59 06:59
Intake Total 60 / 60
Balance 60 / 60
Physical Exam
Physical Exam
GEN: No distress, awake, Ox3
HEENT: supple, anicteric, mmm
LUNGS: CTA, no wheezes/rales
CV: Irreg, S1/S2, 1/6 syst LSB, no gallop
ABD: soft, BS+, NT/ND
EXT: No edema
NEURO: Gross non-focal
SKIN: No rash
--- NOTE | 2024-05-07 10:03 | W.CARD.TIKOS ---
Initiate Tikosyn
-
I verify that the patient has not taken any verapamil (Isoptin/Calan), ketoconazole (Nizoral), cimetidine (Tagamet), trimethoprim (Trimpex), trimethoprim/sulfamethoxazole (Bactrim), megesterol (Megace), prochlorperazine (Compazine),
hydrochlorothiazide (HCTZ), dolutegravir (Tivicay) or any Class I or Class III anti-arrhythmic within the last three days
AND
I verify that the patient has not taken amiodarone within the last THREE months, or that the patient's amiodarone plasma concentration is <0.3 mcg/mL.
Creatinine 0.6 mg/dL (0.7-1.3) L 05/07/24 04:25
Estimated Creat Clear > 125 ml/min 05/07/24 04:25
Does patient have a Ventricular Conduction Abnormality: No
I have assessed the baseline QTc interval (using QT for heart rate less than 60 bpm) and deemed the patient is appropriate for Dofetilide therapy. I understand that Tikosyn is contraindicated if the QTc is >440msec (500msec in patients with
ventricular conduction abnormalities).
Baseline QTc (in msec): 429
QTc interval is greater than 440msec without conduction abnormality OR greater than 500msec with a conduction abnormality, but acceptable to proceed per Cardiology attending.
[2024-05-07] MEDS: TIKOSYN 500 MCG PO ×2 (10:19→22:01)
[2024-05-07 12:17] VITALS: BP 123/100
[2024-05-07 12:18] LABS: Glucose - Point of Care 99 mg/dl (70-99)
--- NOTE | 2024-05-07 12:45 | W.PN.HOSP.TC ---
Today's Communication/Plan
-
Monitor vital signs
see plan
tikosyn; monitor EKG
continue eliquis
Assessment / Plan
Assessment / Plan
General: Well Developed, Well Nourished and No Apparent Distress
HEENT: NormoCephalic, Moist mucous membranes and Atraumatic
Respiratory: Clear
Cardiac: S1/S2 and Regular Rhythm; No Murmur or Rub
GI: Soft, Non Tender, Non Distended and Normal Bowel Sounds
Musculoskeletal: No Clubbing, No Cyanosis and No Edema
Skin: No Rash
Neuro: Nonfocal/grossly intact
IMPRESSION:
Presentation with palpitations, nausea and dry heaves, transit dizziness with diplopia.
Atrial fibrillation with rapid ventricular response.
Conditions prior to admission:
Paroxysmal atrial fibrillation with prior history of ablation and multiple cardioversions.
Essential hypertension.
Type 2 diabetes [id number].
Dyslipidemia
Obesity with BMI of 39
Obstructive sleep apnea.
Lichen planus
Chronic shortness of breath on exertion
PLAN:
A-fib with RVR. History of paroxysmal A-fib status post cardioversion and ablation in past
Improved with initiation of IV Cardizem
Monitor on telemetry.
Plan for Tikosyn starting 05/07 once patient is off HCTZ. monitor EKG
Continue anticoagulation with Eliquis.
Cardiology following. Plan for cardioversion possibly on Wednesday
Presentation with nausea, emesis, dizziness and diplopia shortly resolved with improved rate.
No focal neurologic findings on exam.
CT scan of the head with no acute abnormalities.
Patient states he had been compliant with Eliquis.
Monitor closely, if persistent symptoms consider to repeat CT scan or pursue MRI and neurologic evaluation
Essential hypertension
Patient reports increased BP readings as outpatient.
Currently normotensive while on Cardizem drip.
Echocardiogram EF 55 to 60%
Monitor BP trend while on Cardizem
Type 2 diabetes [id number].
hemoglobin A1c 6.4
Carbohydrate diet
Continue metformin.
Dyslipidemia on statin
Obstructive sleep apnea patient may use his own CPAP.
Lichen planus currently on topical steroids.
DVT prophylaxis�Eliquis.
Full code
Anticipated Discharge: > 48 hours
Subjective/Interval History
-
Date of Service: May 07, 2024
denies pain
Objective Data
-
Labs:
Laboratory Results
05/07/24
04:25
WBC 7.0
Hgb 15.4
Hct 45.3
Plt Count 209
Sodium 136
Potassium 4.2
Chloride 104
Carbon Dioxide 24
BUN 15
Creatinine 0.6 L
Glucose 107 H
Calcium 8.9
Vital Signs:
Vital Signs
Temp Pulse Resp BP Pulse Ox
97.5 F 76 20 123/100 97
05/07/24 11:41 05/07/24 12:17 05/07/24 11:41 05/07/24 12:17 05/07/24 11:41
I&O
05/06/24 05/07/24 05/08/24
06:59 06:59 06:59
Intake Total 60 / 60
Balance 60 / 60
[2024-05-07 15:42] VITALS: BP 117/79
[2024-05-07 16:58] LABS: Glucose - Point of Care 107 mg/dl (70-99)
[2024-05-07] MEDS: PRAVACHOL 40 MG PO (17:23)
[2024-05-07] MEDS: GLUCOPHAGE 1000 MG PO (17:23)
--- NOTE | 2024-05-07 17:47 | PTCARENOTE ---
Pt showered this evening, mayur well.
[2024-05-07 18:55] VITALS: BP 114/87
--- NOTE | 2024-05-07 20:21 | PTCARENOTE ---
assumed care of patient at the change of shift. AAOx3. denies any cp/palps. states mild dyspnea on exertion. Afib on tele 80s-90s. cardizem gtt infusing per protocol. bp stable. reviewed plan of care with patient and verbalized understanding. call
osei within reach. makes needs known.
[2024-05-07 20:56] LABS: Glucose - Point of Care 113 mg/dl (70-99)
[2024-05-07 22:01] VITALS: BP 121/91
[2024-05-08] VITALS (9 sets, daily range): BP systolic 115–140; BP diastolic 85–99
--- NOTE | 2024-05-08 00:07 | PTCARENOTE ---
QTc post 2nd dose of Tikosyn- 446.
[2024-05-08 04:06] LABS: % Basophils 0.9 % (0-2); % Eosinophils 3.5 % (0-6); % Immature Granulocytes 0.5 % (0-0.5); % Lymphocytes 24.7 % (20.5-51.1); % Monocytes 10.4 % (1.7-9.3); Absolute Basophils 0.1 10^3/uL (0-0.2); Absolute Eosinophils 0.2 10^3/uL (0-0.7); Absolute Lymphocytes 1.6 10^3/uL (1.2-3.4); Absolute Monocytes 0.7 10^3/uL (0.1-0.6); Absolute Neutrophils 3.8 10^3/uL (1.4-6.5); Hematocrit 44.3 % (39.0-52.0); Hemoglobin 15.1 g/dL (13.0-18.0); Mean Corp Hgb Conc. 34.1 g/dL (33.0-37.0); Mean Corpuscular Hgb 29.7 pg (27.0-31.0); Mean Corpuscular Volume 87.2 fL (80.0-94.0); Mean Platelet Volume 10.1 fL (7.4-10.4); Nucleated Red Blood Cells % 0 % (-); Platelet Count 206 10^3/uL (130-400); Red Blood Cell Count 5.08 10^6/uL (4.70-6.10); Red Cell Dist. Width 13.2 % (11.5-14.5); White Blood Cell Count 6.4 10^3/uL (4.8-10.8)
[2024-05-08 04:32] LABS: Blood Urea Nitrogen 17 mg/dl (9-20); Calcium 8.9 mg/dl (8.4-10.2); Carbon Dioxide 25 mmol/L (22-30); Chloride 105 mmol/L (98-107); Estimated Creatinine Clearance > 125 ml/min; Glucose 118 mg/dl (70-99); Sodium 136 mmol/L (135-145); eGFR > 60.00
[2024-05-08 07:15] LABS: Glucose - Point of Care 101 mg/dl (70-99)
[2024-05-08] MEDS: KCL 20 MEQ PO (08:02)
[2024-05-08] MEDS: MUCINEX 1200 MG PO ×2 (08:02→20:38)
[2024-05-08] MEDS: VITAMIN D3 (cholecalciferol) 50 MCG PO (08:02)
[2024-05-08] MEDS: ELIQUIS 5 MG PO ×2 (08:02→20:38)
[2024-05-08] MEDS: VITAMIN B-12 1000 MCG PO (08:02)
[2024-05-08] MEDS: TRIAMCINOLONE ACETONIDE 0.1% OINTMENT 1 APPLIC TOPICAL ×2 (08:03→20:39)
[2024-05-08] MEDS: ZYRTEC 10 MG PO (08:03)
--- NOTE | 2024-05-08 08:33 | PTCARENOTE ---
Received patient this morning ambulating out into the nuñez. Remains in AF, with a controlled rate, IV cardizem infusing at 5mg/hr. Patient is due for his third tikosyn dose at 1000. Offers no complaints, call osei in reach.
--- NOTE | 2024-05-08 09:45 | W.PN.CARDCBS ---
Today's Communication / Plan
-
Continue Tikosyn 500 mcg p.o. every 12. QTc stable at 446 ms.
Continue Eliquis.
Will switch her IV Cardizem back to oral 120 mg daily.
N.p.o. for cardioversion in a.m.
Impression / Plan
-
Primary Landscape Designer: Dr. Barnett
Assessment:
Presentations with dizziness, N/V, concern for vertigo
Paroxysmal atrial fibrillation with RVR
Status post PVI 04/2021
Chronic anticoagulation with Eliquis
Diabetes
Hypertension
Hyperlipidemia
Obesity
ADELSO
mild pulm fibrosis
History of colon resection 1996 secondary to diverticulitis
Former smoker
Recent diagnosis lichen planus
ECHO 08/13/21: EF 64%, moderate concentric LVH, mild MR, trace TR
Echo May 05, 2024, EF 55 6%, mild MR, mild TR, aortic root 3.9 cm
Plan:
-Patient presented with dizziness/grogginess as well as nausea and vomiting, fortunately now resolved. head CT negative for acute abnormality. work up per primary service
-trop negative
-Cont Tikosyn 500 mcg every 12. He has been off hydrochlorothiazide for 72 hours at that point.
-He reports compliance with Eliquis, no missed doses
-Will likely stop IV diltiazem and switch back to p.o. today.
-LVEF preserved by echo. Plan will be for cardioversion on Wednesday.
Progress Note - Landscape Designer
Subjective
Date of Service: May 08, 2024
Denies chest pain or shortness of breath. Remains in A-fib.
Objective
Labs:
05/08/24 03:44
05/08/24 03:44
Labs
Hgb 15.1 g/dL (13.0-18.0) 05/08/24 03:44
Hct 44.3 % (39.0-52.0) 05/08/24 03:44
Plt Count 206 10^3/uL (130-400) 05/08/24 03:44
Sodium 136 mmol/L (135-145) 05/08/24 03:44
Potassium 4.0 mmol/L (3.5-5.1) 05/08/24 03:44
BUN 17 mg/dl (9-20) 05/08/24 03:44
Creatinine 0.6 mg/dL (0.7-1.3) L 05/08/24 03:44
Glucose 118 mg/dl (70-99) H 05/08/24 03:44
Vital Signs and I&O:
Vital Signs
Temp Pulse Resp BP Pulse Ox
97.5 F 77 18 124/94 98
05/08/24 07:30 05/08/24 07:33 05/08/24 07:30 05/08/24 07:33 05/08/24 07:30
Vital Signs
Temp Pulse Resp BP Pulse Ox
97.5 F 77 18 124/94 98
05/08/24 07:30 05/08/24 07:33 05/08/24 07:30 05/08/24 07:33 05/08/24 07:30
Intake & Output
05/06/24 05/07/24 05/08/24 05/09/24
06:59 06:59 06:59 06:59
Intake Total 60 / 60 400 / 400 240 / 240
Balance 60 / 60 400 / 400 240 / 240
Physical Exam
Physical Exam
GEN: No distress, awake, Ox3
HEENT: supple, anicteric, mmm
LUNGS: CTA, no wheezes/rales
CV: Irreg, S1/S2, 1/6 syst LSB, no gallop
ABD: soft, BS+, NT/ND
EXT: No edema
NEURO: Gross non-focal
SKIN: No rash
[2024-05-08] MEDS: CARDIZEM CD 120 MG PO (10:04)
[2024-05-08] MEDS: TIKOSYN 500 MCG PO ×2 (10:04→21:40)
[2024-05-08] MEDS: FLUSH (NSS) 1 FLUSH IV (10:04)
--- NOTE | 2024-05-08 10:08 | CM ---
Reviewed chart. Met with Mr. Lopez to review discharge plans. He states he is feeling well and maybe able to go home soon. He states prior to admission he resides with is spouse in a one story home. He states prior to admission he was
independent with ambulation and adls. He states he has a prescription plan with [employer] and uses [facility] and [facility]. [facility] ([phone][facility] to check on co-pay for Dofetilide 500 mcg bid. His co-pay would be $5.00
for a ninety day supply. Telephone call to [facility], ([phone]) to see if they have Dofetilide 500 mcg in stock. [facility] has it in stock. They are only opened to 6:00 p.m. on Wednesday05/09/14. Will need a three day script to go to
[facility] for a three day supply to go home with him. Medical work-up in progress. The discharge plan is to return home with his spouse when medically stable.
[2024-05-08 12:03] LABS: Glucose - Point of Care 100 mg/dl (70-99)
--- NOTE | 2024-05-08 12:22 | PTCARENOTE ---
TT to Celeste WILKINS re: QTc 492.
--- NOTE | 2024-05-08 14:48 | W.PN.HOSP.TC ---
Today's Communication/Plan
-
Transition to oral Cardizem.
Continue Tikosyn per
For cardioversion in a.m.
Assessment / Plan
Assessment / Plan
IMPRESSION:
Presentation with palpitations, nausea and dry heaves, transit dizziness with diplopia.
Atrial fibrillation with rapid ventricular response.
Conditions prior to admission:
Paroxysmal atrial fibrillation with prior history of ablation and multiple cardioversions.
Essential hypertension.
Type 2 diabetes [id number].
Dyslipidemia
Obesity with BMI of 39
Obstructive sleep apnea.
Lichen planus
Chronic shortness of breath on exertion
PLAN:
A-fib with RVR. History of paroxysmal A-fib status post cardioversion and ablation in past
Improved with initiation of IV Cardizem
Monitor on telemetry.
Tikosyn initiated on 05/07 once patient is off HCTZ. monitor EKG
Continue anticoagulation with Eliquis.
Transition off IV Cardizem to oral
Continue Tikosyn
Plan for cardioversion
Presentation with nausea, emesis, dizziness and diplopia shortly resolved with improved rate.
No focal neurologic findings on exam.
CT scan of the head with no acute abnormalities.
Patient states he had been compliant with Eliquis.
Monitor closely, if persistent symptoms consider to repeat CT scan or pursue MRI and neurologic evaluation
Essential hypertension
Patient reports increased BP readings as outpatient.
Currently normotensive while on Cardizem drip.
Echocardiogram EF 55 to 60%
Monitor BP trend while on Cardizem
Type 2 diabetes [id number]-drkhkhn-ulcjzhnop.
hemoglobin A1c 6.4
Carbohydrate diet
Continue metformin.
Dyslipidemia on statin
Obstructive sleep apnea patient may use his own CPAP.
Lichen planus currently on topical steroids.
DVT prophylaxis�Eliquis.
Full code
Anticipated Discharge: 24 - 48 hours
Subjective/Interval History
-
Date of Service: May 08, 2024
Objective Data
-
Labs:
Laboratory Results
05/08/24
03:44
WBC 6.4
Hgb 15.1
Hct 44.3
Plt Count 206
Sodium 136
Potassium 4.0
Chloride 105
Carbon Dioxide 25
BUN 17
Creatinine 0.6 L
Glucose 118 H
Calcium 8.9
Vital Signs:
Vital Signs
Temp Pulse Resp BP Pulse Ox
97.5 F 74 16 115/85 94
05/08/24 11:27 05/08/24 12:00 05/08/24 11:27 05/08/24 11:27 05/08/24 11:27
I&O
05/07/24 05/08/24 05/09/24
06:59 06:59 06:59
Intake Total 400 / 400 240 / 240
Balance 400 / 400 240 / 240
Physical Exam
-
General: Well Developed and No Apparent Distress
HEENT: Normocephalic, Atraumatic and Moist Mucous Membranes
Respiratory: Clear to Auscultation
Cardiac: Regular Rhythm and S1/S2; Negative Murmur, Rub or Gallop
GI: Soft, Nontender, Nondistended and Normal Bowel Sounds; Negative Organomegaly
Rectal: Deferred by Provider
Musculoskeletal: No Clubbing, No Cyanosis and No Edema
Skin: Negative Rash
Neuro: Nonfocal/Grossly Intact
[2024-05-08] MEDS: GLUCOPHAGE 1000 MG PO (17:25)
[2024-05-08] MEDS: PRAVACHOL 40 MG PO (17:25)
[2024-05-08 17:27] LABS: Glucose - Point of Care 89 mg/dl (70-99)
[2024-05-08 21:11] LABS: Glucose - Point of Care 119 mg/dl (70-99)
--- NOTE | 2024-05-08 23:47 | PTCARENOTE ---
assumed care of patient at the change of shift. AAOx3. independent in the room. Afib on tele 70s-90s. bp stable. patient states mild dyspnea on exertion. 96% on RA. reviewed plan of care. NPO at midnight. call osei within reach. makes needs known.
QTc post 4th dose of Tikosyn- 492.
[2024-05-09 04:33] VITALS: BP 126/93
[2024-05-09 08:39] VITALS: BP 105/89
[2024-05-09] MEDS: TIKOSYN 500 MCG PO (09:20)
[2024-05-09] MEDS: ELIQUIS 5 MG PO (09:21)
[2024-05-09] MEDS: CARDIZEM CD 120 MG PO (09:21)
[2024-05-09 09:25] LABS: Glucose - Point of Care 101 mg/dl (70-99)
--- NOTE | 2024-05-09 09:48 | PTCARENOTE ---
Received patient this morning resting in bed, NPO for CV. Remains in AF, labs drawn as ordered- report given to Lucrecia and patient taken for his procedure.
[2024-05-09 10:27] LABS: Blood Urea Nitrogen 13 mg/dl (9-20); Carbon Dioxide 24 mmol/L (22-30); Chloride 104 mmol/L (98-107); Estimated Creatinine Clearance > 125 ml/min; Glucose 110 mg/dl (70-99); Magnesium 2.2 mg/dl (1.6-2.3); Sodium 136 mmol/L (135-145); eGFR > 60.00
[2024-05-09 10:45] LABS: Potassium 4.1 mmol/L (3.5-5.1)
[2024-05-09 10:57] VITALS: BP 124/98
--- NOTE | 2024-05-09 11:08 | W.PN.CARDCBS ---
Today's Communication / Plan
-
Continue dofetilide 500 mcg twice daily, oral diltiazem, Eliquis 5 mg twice daily
Repeat BMP, mag; if renal function, electrolytes are stable okay for DC from CV standpoint
Follow-up to be arranged with cardiology as outpatient
Impression / Plan
-
Primary Operations And Maintenance Technician: Dr. Barnett
.
Assessment:
Presentations with dizziness, N/V, concern for vertigo
Paroxysmal atrial fibrillation with RVR
[id number]: 2 (age, hypertension). Eliquis 5 mg twice daily
Status post PVI 04/2021
Chronic anticoagulation with Eliquis
Diabetes
Hypertension
Hyperlipidemia
Obesity
ADELSO
mild pulm fibrosis
History of colon resection 1996 secondary to diverticulitis
Former smoker
Recent diagnosis lichen planus
ECHO 08/13/21: EF 64%, moderate concentric LVH, mild MR, trace TR
Echo May 05, 2024, EF 55 6%, mild MR, mild TR, aortic root 3.9 cm
Plan:
-Patient presented with dizziness/grogginess as well as nausea and vomiting, fortunately now resolved. head CT negative for acute abnormality. work up per primary service
-trop negative
-Cont Tikosyn 500 mcg every 12. He has been off hydrochlorothiazide for 72 hours at that point. Cannot resume hydrochlorothiazide on discharge while on dofetilide.
-He reports compliance with Eliquis, no missed doses
-Continue p.o. diltiazem
-LVEF preserved by echo.
-Status post DCCV 05/05/2024, sinus rhythm; QT/QTc 438/455 ms stable (prior on 05/08/2024 reported as 396/492 ms)
� Repeat BMP/mag this morning if kidney function and electrolytes stable, safe for DC from CV standpoint
�Discussed with patient importance of discussing with his other physicians about QT prolonging medications now that he is taking dofetilide. Patient verbalized understanding
Progress Note - Operations And Maintenance Technician
Subjective
Date of Service: May 09, 2024
Patient seen and examined. No acute events overnight. Patient underwent successful DCCV. Patient denies chest pain, shortness of breath, palpitations, weakness.
Objective
Labs:
05/08/24 03:44
05/09/24 09:27
Labs
Hgb 15.1 g/dL (13.0-18.0) 05/08/24 03:44
Hct 44.3 % (39.0-52.0) 05/08/24 03:44
Plt Count 206 10^3/uL (130-400) 05/08/24 03:44
Sodium 136 mmol/L (135-145) 05/09/24 09:27
Potassium 4.1 mmol/L (3.5-5.1) 05/09/24 09:27
BUN 13 mg/dl (9-20) 05/09/24 09:27
Creatinine 0.6 mg/dL (0.7-1.3) L 05/09/24 09:27
Glucose 110 mg/dl (70-99) H 05/09/24 09:27
Vital Signs and I&O:
Vital Signs
Temp Pulse Resp BP Pulse Ox
97.9 F 101 18 105/89 95
05/09/24 08:40 05/09/24 08:39 05/09/24 08:40 05/09/24 08:39 05/09/24 08:40
Vital Signs
Temp Pulse Resp BP Pulse Ox
97.9 F 101 18 105/89 95
05/09/24 08:40 05/09/24 08:39 05/09/24 08:40 05/09/24 08:39 05/09/24 08:40
Intake & Output
05/07/24 05/08/24 05/09/24 05/10/24
06:59 06:59 06:59 06:59
Intake Total 400 / 400 880 / 0
Balance 400 / 400 0 / 0
Physical Exam
Physical Exam
GEN: No distress, awake, Ox3
HEENT: supple, anicteric, mmm
LUNGS: CTA, no wheezes/rales
CV: Regular rate and rhythm, S1/S2, 1/6 syst LSB, no gallop
ABD: soft, BS+, NT/ND
EXT: No edema
NEURO: Gross non-focal
SKIN: No rash
--- NOTE | 2024-05-09 11:10 | PTCARENOTE ---
Patient returned to his room after CV x 2 to SR/SB. Monitoring VS, feels good, oob ambulating in the room.
[2024-05-09 11:27] VITALS: BP 114/87
--- NOTE | 2024-05-09 11:31 | CM ---
Reviewed chart. Met with Mr. Lopez to review discharge plans. He states he feels well and maybe able to go home soon. We reviewed the three day supply of Dofetilide to go home with him. He will need a three script of Dofetilide to go to [facility]. Prior to admission he resides with his spouse in a one story home. Prior to admission he was independent with ambulation and adls. He has a prescription plan with [facility] and uses [facility] mail order pharmacy and [facility]
when needed. Medical work-up in progress. The discharge plan is to return home with his spouse when medically stable.
--- NOTE | 2024-05-09 11:33 | W.DS.TRANS ---
DC Summary - Stem Processing Machine Operator
-
Discharge Instructions:
Discharge Diagnosis/Procedures Afib with RVR
Diet 2 Gram Sodium
Instructions:
Stand-Alone Forms:
Changes to Home Medications: Yes
Discharge Medications:
DC Medications w/original date entered in [facility]
cholecalciferol (vitamin D3) 50 mcg (2,000 unit) tablet 2,000 units PO DAILY Supplement 04/01/18
cyanocobalamin (vitamin B-12) 1,000 mcg tablet 1,000 mcg PO DAILY Supplement 04/01/18
potassium chloride 10 mEq capsule,extended release 20 meq PO DAILY Electrolyte Repletion 04/01/18
guaifenesin 1,200 mg tablet, extended release 12 hr (Mucinex) 1,200 mg PO BID Congestion 01/24/19
cetirizine 10 mg tablet 10 mg PO Daily Allergies 05/01/21
pravastatin 40 mg tablet 40 mg PO QPM High Cholesterol 05/01/22
apixaban 5 mg tablet (Eliquis) 5 mg PO BID Blood Clot Prevention/Tx 05/05/24
metformin 1,000 mg tablet 1,000 mg PO QPM Diabetes 05/05/24
triamcinolone acetonide 0.1 % topical ointment 1 applic topical BID BODY RASH 05/05/24
diltiazem HCl 120 mg capsule,extended release 24 hr 120 mg PO DAILY Arrhythmia #30 caps 05/09/24
dofetilide 500 mcg capsule 500 mcg PO Q12H Arrhythmia #60 caps 05/09/24
Home Medication Changes
Tikosyn initiated.
HCTZ stopped
Pending Results: No
[2024-05-09] MEDS: MUCINEX 1200 MG PO (12:22)
[2024-05-09] MEDS: KCL 20 MEQ PO (12:22)
[2024-05-09] MEDS: TRIAMCINOLONE ACETONIDE 0.1% OINTMENT 1 APPLIC TOPICAL (12:22)
[2024-05-09] MEDS: VITAMIN D3 (cholecalciferol) 50 MCG PO (12:23)
[2024-05-09] MEDS: ZYRTEC 10 MG PO (12:23)
[2024-05-09] MEDS: VITAMIN B-12 1000 MCG PO (12:23)
--- NOTE | 2024-05-09 13:57 | PTCARENOTE ---
Patient remains in SR after CV. Reviewed discharge instructions with the patient and his and they state their understanding. Patient discharged home with his .
== END 2024-05-09 13:50 | disposition home or self-care (01) | DRG 309 ==
LOC: IVU 11:58
PROVIDERS: Internal Medicine; Internal Medicine Cardiovascular Disease; Student in an Organized Health Care Education/Training Program; ADMITTING PHYSICIAN Internal Medicine; CONSULT PHYSICIAN Internal Medicine Cardiovascular Disease; EMERGENCY PHYSICIAN Emergency Medicine; FAMILY PHYSICIAN Family Medicine
PROC: 5A2204Z Restoration of Cardiac Rhythm, Single (ICD-10-PCS; 2024-05-09)
DX: I48.0 Paroxysmal atrial fibrillation (principal); Q21.12 Patent foramen ovale; R11.2 Nausea with vomiting, unspecified; E78.00 Pure hypercholesterolemia, unspecified; I10 Essential (primary) hypertension; R42 Dizziness and giddiness; H53.2 Diplopia; J84.10 Pulmonary fibrosis, unspecified; G47.33 Obstructive sleep apnea (adult) (pediatric); E66.9 Obesity, unspecified; E11.9 Type 2 diabetes mellitus without complications; L43.9 Lichen planus, unspecified; Z88.5 Allergy status to narcotic agent; Z79.01 Long term (current) use of anticoagulants; Z79.84 Long term (current) use of oral hypoglycemic drugs; Z68.39 Body mass index [BMI] 39.0-39.9, adult; Z90.49 Acquired absence of other specified parts of digestive tract; Z87.891 Personal history of nicotine dependence; Z87.19 Personal history of other diseases of the digestive system
CPT/HCPCS: 70450; 71046; 80048; 80053; 82962; 83036; 83735; 83880; 84484; 85025; 92960; 93005; 93306; 96374; 99291

== ENCOUNTER 2024-12-13 13:03 | Outpatient (RCR) | payer MEDICARE, OTHER, SELFPAY | END 2024-12-13 23:59 | disposition home or self-care (01) | LOC: RPT 13:03 | PROVIDERS: ATTENDING PHYSICIAN Physician Assistant Surgical; FAMILY PHYSICIAN Family Medicine | DX: M25.511 Pain in right shoulder (principal); M54.12 Radiculopathy, cervical region | CPT/HCPCS: 97110; 97112; 97162; 97535 ==

== ENCOUNTER 2025-01-11 12:52 | Outpatient (RCR) | payer MEDICARE, OTHER, SELFPAY | END 2025-01-11 23:59 | disposition home or self-care (01) | LOC: RPT 12:52 | PROVIDERS: ATTENDING PHYSICIAN Physician Assistant Surgical; FAMILY PHYSICIAN Family Medicine | DX: M25.511 Pain in right shoulder (principal); M54.12 Radiculopathy, cervical region | CPT/HCPCS: 97010; 97110; 97112 ==

== ENCOUNTER → 2025-01-12 19:53 | Outpatient (REF) | payer MEDICARE, OTHER, SELFPAY | LOC: MRI 3T 19:53 | PROVIDERS: ATTENDING PHYSICIAN Physician Assistant Surgical; FAMILY PHYSICIAN Family Medicine | DX: G95.9 Disease of spinal cord, unspecified (principal) | CPT/HCPCS: 72141 ==

== ENCOUNTER 2025-01-19 11:14 | Outpatient (RCR) | payer MEDICARE, OTHER, SELFPAY | END 2025-01-19 23:59 | disposition home or self-care (01) | LOC: RPT 11:14 | PROVIDERS: ATTENDING PHYSICIAN Physician Assistant Surgical; FAMILY PHYSICIAN Family Medicine | DX: M25.511 Pain in right shoulder (principal); M54.12 Radiculopathy, cervical region; Z73.6 Limitation of activities due to disability; M62.81 Muscle weakness (generalized) | CPT/HCPCS: 97110; 97112 ==

== ENCOUNTER → 2025-03-06 07:52 | Outpatient (REF) | payer MEDICARE, OTHER, SELFPAY ==
[2025-03-06 09:19] LABS: Hematocrit 43.9 % (39.0-52.0); Hemoglobin 14.9 g/dL (13.0-18.0); Mean Corp Hgb Conc. 33.9 g/dL (33.0-37.0); Mean Corpuscular Volume 88.7 fL (80.0-94.0); Nucleated Red Blood Cells % 0 % (-); Platelet Count 211 10^3/uL (130-400); Red Cell Dist. Width 14.2 % (11.5-14.5)
[2025-03-06 10:20] LABS: Blood Urea Nitrogen 17 mg/dl (9-20); Calcium 9.2 mg/dl (8.4-10.2); Carbon Dioxide 24 mmol/L (22-30); Chloride 109 mmol/L (98-107); Glucose 109 mg/dl (70-99); Potassium 4.0 mmol/L (3.5-5.1); Sodium 137 mmol/L (135-145); eGFR > 60.00
== END ==
LOC: SDSPAT 07:52
PROVIDERS: ATTENDING PHYSICIAN Specialist; FAMILY PHYSICIAN Family Medicine
DX: Z01.818 Encounter for other preprocedural examination (principal)
CPT/HCPCS: 80048; 85025; 93005

== ENCOUNTER 2025-03-16 05:51 | Day surgery (SDC) | payer MEDICARE, OTHER, SELFPAY ==
--- NOTE | 2025-02-27 12:59 | CM ---
Cm reviewed medical records. CM spoke with patient. He does not have PAT appointments made. CM updated Jeanine in admissions regarding patient's PAT appointments.
[2025-03-06 13:52] VITALS: BMI 38.2
[2025-03-16] VITALS (7 sets, daily range): BP systolic 135–163; BP diastolic 83–93; BMI 38.2
[2025-03-16] MEDS: CELEBREX 200 MG PO (06:46)
[2025-03-16] MEDS: TYLENOL 1000 MG PO (06:46)
[2025-03-16] MEDS: NORMOSOL-R/PLASMALYTE-A 1000 IV (06:57)
[2025-03-16 06:58] LABS: Glucose - Point of Care 115 mg/dl (70-99)
[2025-03-16 08:43] LABS: Glucose - Point of Care 136 mg/dl (70-99)
[2025-03-16] MEDS: DILAUDID 0.25 MG IV ×2 (08:45→09:01)
[2025-03-16] MEDS: ULTRAM 50 MG PO (10:09)
== END 2025-03-16 11:00 | disposition home or self-care (01) ==
LOC: SDS 05:51
PROVIDERS: ATTENDING PHYSICIAN Specialist
DX: M19.019 Primary osteoarthritis, unspecified shoulder (principal); M75.101 Unspecified rotator cuff tear or rupture of right shoulder, not specified as traumatic; M75.41 Impingement syndrome of right shoulder
CPT/HCPCS: 29827; 82962; C1713

== ENCOUNTER 2025-05-15 07:16 | Outpatient (RCR) | payer MEDICARE, OTHER, SELFPAY | END 2025-05-15 23:59 | disposition home or self-care (01) | LOC: RPT 07:16 | PROVIDERS: ATTENDING PHYSICIAN Physician Assistant Surgical; FAMILY PHYSICIAN Family Medicine | DX: Z47.89 Encounter for other orthopedic aftercare (principal); M25.511 Pain in right shoulder; M62.81 Muscle weakness (generalized); Z73.6 Limitation of activities due to disability; R42 Dizziness and giddiness | CPT/HCPCS: 97010; 97110; 97112; 97140; 97162; 97535 ==